=== PATIENT | female | born 1970 | race Hispanic/Latino ===

== ENCOUNTER 2019-01-15 10:07 | Emergency (ER) | payer OTHER ==
[~2019-01-15] VITALS: Ht 167.6 cm; Wt 90.3 kg
[2019-01-15] MEDS ORDERED: ABILIFY MAINTE300 MG IM (10:13)
[2019-01-15] MEDS ORDERED: IBU600 MG PO (10:55)
--- OUTSIDE RECORDS SUMMARY | 2019-01-15 11:36 | XMS ---
PreManage Notification: BRODY WINN Security Health And Physical Education Teacher Events No recent Security Events currently on file [place]ITERIA MET - [facility] [place]ARE PROVIDERS JES YOON [facility] Current PHONE: Unknown [email or web address], [employer] Mental Health Provider Current PHONE: [phone] Marcelo Swartz - Case or French Lecturer [facility] PHONE: [phone] [facility] PHONE: [phone] KAYLI POLLARD [facility] PHONE: Unknown [facility] PHONE: Unknown Guidelines Source: [employer] Guidelines Date: 11/16/2017 Additional Information: Enrolled in Assertive Community Treatment program with [email or web address].\T\nbsp; Please contact Odette Andrade @ [email or web address] regarding mental health concerns. [phone]. Prescription medications go through [place] [phone] Care History Behavioral 06/26/2017 [employer] [place] Civil Commitment ending October 24, 2017. Currently on a trial visit to independent living. Please contact [email or web address] with mental health concerns. . E.D. VISIT COUNT (12 MO.) [address] [place] [address] [facility] NOTE: Visits indicate total known visits. ED/UCC VISIT TRACKING (12 MO.) 01/15/2019 10:08 [facility] [place] TYPE: Emergency COMPLAINT: - SHOULDER PAIN 06/11/2018 13:37 [facility] [place] TYPE: Emergency DIAGNOSES: - Other chest pain - MENTAL HEALTH - Hematemesis - Schizoaffective disorder, bipolar type INPATIENT VISIT TRACKING (12 MO.) No inpatient visits to display in this time frame [id number]
== END 2019-01-15 11:08 | disposition home or self-care (01) ==
LOC: ED 10:07
DX: S46.811A Strain of other muscles, fascia and tendons at shoulder and upper arm level, right arm, initial encounter (principal); F41.0 Panic disorder [episodic paroxysmal anxiety]; X58.XXXA Exposure to other specified factors, initial encounter; F31.9 Bipolar disorder, unspecified; F20.9 Schizophrenia, unspecified; Z79.899 Other long term (current) drug therapy
CPT/HCPCS: 99283

== ENCOUNTER 2019-01-29 15:13 | Emergency (ER) | payer OTHER ==
[~2019-01-29] VITALS: Ht 167.6 cm; Wt 90.3 kg
[~2019-01-29 15:13] MED LIST: ABILIFY MAINTE300 MG IM; IBU600 MG PO
--- OUTSIDE RECORDS SUMMARY | 2019-01-29 15:16 | XMS ---
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 - Has Care Guidelines - [facility] - 2 Visits in 30 Days CARE PROVIDERS JES YOON [facility] Current PHONE: Unknown [employer] Mental Health Provider Current PHONE: [phone] Marcelo Swartz - Case or Civil Engineering Drafter Current [facility] PHONE: [phone] [facility] PHONE: [phone] KAYLI BAIRD [facility] PHONE: Unknown [facility] PHONE: Unknown Guidelines Source: [employer] Guidelines Date: 11/16/2017 Additional Information: Enrolled in Assertive Community Treatment program with [employer]T\[facility]; Please contact Odette Andrade @ [employer] regarding mental health concerns. [phone]. Prescription medications go through [place] [phone] Care History Behavioral 06/26/2017 [employer] Civil Commitment ending October 24, 2017. Currently on a trial visit to independent living. Please contact [employer] with mental health concerns. [phone]. E.D. VISIT COUNT (12 MO.) [address] [place] [address] Anthony Zaynab TOTAL 3 NOTE: Visits indicate total known visits. ED/UCC VISIT TRACKING (12 MO.) 01/29/2019 15:13 [facility] [place] TYPE: Emergency COMPLAINT: - MEDICAL CLEARANCE 01/15/2019 10:08 [facility] [place] TYPE: Emergency COMPLAINT: - SHOULDER PAIN DIAGNOSES: - Strain of musc/fasc/tend at shldr/up arm, right arm, init - Schizophrenia, unspecified - Pain in right shoulder - Other senior care (current) drug therapy - Bipolar disorder, unspecified - Exposure to other specified factors, initial encounter - Panic disorder [episodic paroxysmal anxiety] 06/11/2018 13:37 [facility] [place] TYPE: Emergency DIAGNOSES: - Other chest pain - MENTAL HEALTH - Hematemesis - Schizoaffective disorder, bipolar type INPATIENT VISIT TRACKING (12 MO.) No inpatient visits to display in this time frame [id number]
== END 2019-01-29 17:17 | disposition home or self-care (01) ==
LOC: ED 15:13
DX: F32.9 Major depressive disorder, single episode, unspecified (principal); F31.9 Bipolar disorder, unspecified; F17.200 Nicotine dependence, unspecified, uncomplicated; Z79.899 Other long term (current) drug therapy
CPT/HCPCS: 80053; 80176; 84443; 84703; 85025; 99284; G0480

== ENCOUNTER 2019-07-24 22:55 | Emergency (ER) | payer OTHER ==
[~2019-07-24] VITALS: Ht 170.2 cm; Wt 90.7 kg
--- OUTSIDE RECORDS SUMMARY | 2019-07-24 22:58 | XMS ---
PreManage Notification: BRODY WINN Security Manager Statistical Programming Events No recent Security Events currently on file CRITERIA MET - [facility] Care Guidelines CARE PROVIDERS JES YOON [facility] Current PHONE: Unknown Guidelines Source: [employer] Guidelines Date: 01/31/2019 Additional Information: Enrolled in Assertive Community Treatment program with [employer].\T\nbsp; Please contact Panfilo Fraire @ [employer] regarding mental health concerns. [phone]. Prescription medications go through [place] [phone] Care History Behavioral 06/26/2017 [employer] Civil Commitment ending October 24, 2017. Currently on a trial visit to independent living. Please contact [employer] with mental health concerns. . E.D. VISIT COUNT (12 MO.) 3 [facility] TOTAL 3 NOTE: Visits indicate total known visits. ED/UCC VISIT TRACKING (12 MO.) 07/24/2019 22:55 [facility] [place] TYPE: Emergency COMPLAINT: - PSYCHIATRIC PROBLEM 01/29/2019 15:13 [facility] [place] TYPE: Emergency COMPLAINT: - MEDICAL CLEARANCE DIAGNOSES: - Bipolar disorder, unspecified - Suicidal ideations - Major depressive disorder, single episode, unspecified - Nicotine dependence, unspecified, uncomplicated - Other cookie breaker (current) drug therapy 01/15/2019 10:08 [facility] [place] TYPE: Emergency COMPLAINT: - SHOULDER PAIN DIAGNOSES: - Strain of other muscles, fascia and tendons at shoulder and u - Schizophrenia, unspecified - Pain in right shoulder - Other cookie breaker (current) drug therapy - Bipolar disorder, unspecified - Exposure to other specified factors, initial encounter - Panic disorder [episodic paroxysmal anxiety] INPATIENT VISIT TRACKING (12 MO.) No inpatient visits to display in this time frame [id number]
== END 2019-07-25 00:18 | disposition home or self-care (01) ==
LOC: ED 22:55
DX: R06.00 Dyspnea, unspecified (principal); F31.9 Bipolar disorder, unspecified; F20.9 Schizophrenia, unspecified; F17.200 Nicotine dependence, unspecified, uncomplicated; Z79.899 Other long term (current) drug therapy
CPT/HCPCS: 71046; 99285-25

== ENCOUNTER 2019-08-24 13:17 | Emergency (ER) | payer OTHER ==
[~2019-08-24] VITALS: Ht 170.2 cm; Wt 90.7 kg
--- OUTSIDE RECORDS SUMMARY | 2019-08-24 13:20 | XMS ---
PreManage Notification: BRODY WINN Security Clinical Audiologist Events No recent Security Events currently on file CRITERIA MET - [facility] Care Guidelines CARE PROVIDERS JES YOON [facility] Current PHONE: Unknown Guidelines Source: [employer] Guidelines Date: 01/31/2019 Additional Information: Enrolled in Assertive Community Treatment program with [employer].\T\nbsp; Please contact Panfilo Fraire @ [employer] regarding mental health concerns. [phone]. Prescription medications go through [place] [phone] Care History Behavioral 06/26/2017 [place] Civil Commitment ending October 24, 2017. Currently on a trial visit to independent living. Please contact [employer] with mental health concerns. [phone]. E.D. VISIT COUNT (12 MO.) [address] [place] [address] TOTAL 4 NOTE: Visits indicate total known visits. ED/UCC VISIT TRACKING (12 MO.) 08/24/2019 13:18 [facility] [place] TYPE: Emergency COMPLAINT: - ABD CRAMPS 07/24/2019 22:55 [facility] [place] TYPE: Emergency COMPLAINT: - PSYCHIATRIC PROBLEM DIAGNOSES: - Bipolar disorder, unspecified - Dyspnea, unspecified - Shortness of breath - Nicotine dependence, unspecified, uncomplicated - Other senior care (current) drug therapy - Schizophrenia, unspecified 01/29/2019 15:13 [facility] [place] TYPE: Emergency COMPLAINT: - MEDICAL CLEARANCE DIAGNOSES: - Bipolar disorder, unspecified - Suicidal ideations - Major depressive disorder, single episode, unspecified - Nicotine dependence, unspecified, uncomplicated - Other senior care (current) drug therapy 01/15/2019 10:08 [facility] [place] TYPE: Emergency COMPLAINT: - SHOULDER PAIN DIAGNOSES: - Strain of other muscles, fascia and tendons at shoulder and u - Schizophrenia, unspecified - Pain in right shoulder - Other termite control representative (current) drug therapy - Bipolar disorder, unspecified - Exposure to other specified factors, initial encounter - Panic disorder [episodic paroxysmal anxiety] INPATIENT VISIT TRACKING (12 MO.) No inpatient visits to display in this time frame [id number]
--- NOTE | 2019-08-26 09:08 | EKG ---
[facility] [address] [facility] [place], [place] [address] Signed Sinus tachycardia Otherwise normal ECG No previous ECGs available Confirmed by CHRISTAL TERRELL MD ([id number]) on 08/26/2019 9:08:15 AM Electronically Signed By: CHRISTAL TERRELL MD 08/26/19 0908 PATIENT NAME: BRODY WINN Electrocardiogram DATE OF : 72 PHYSICIAN: CHRISTAL TERRELL MD REPORT #: [id number] REPORT IS CONFIDENTIAL AND NOT TO BE RELEASED WITHOUT AUTHORIZATION
== END 2019-08-24 14:35 | disposition home or self-care (01) ==
LOC: ED 13:17
DX: K29.70 Gastritis, unspecified, without bleeding (principal); F31.9 Bipolar disorder, unspecified; F20.9 Schizophrenia, unspecified; F17.200 Nicotine dependence, unspecified, uncomplicated; Z79.899 Other long term (current) drug therapy
CPT/HCPCS: 80053; 83690; 85025; 93005; 93010; 99284-25

== ENCOUNTER 2019-09-10 21:01 | Emergency (ER) | payer OTHER ==
[~2019-09-10] VITALS: Ht 170.2 cm; Wt 90.7 kg
--- OUTSIDE RECORDS SUMMARY | 2019-09-10 21:04 | XMS ---
PreManage Notification: BRODY WINN Security Side Puller Events No recent Security Events currently on file CRITERIA MET - [facility] - Has Care Guidelines - [facility] - 2 Visits in 30 Days CARE PROVIDERS JES YOON [facility] Current PHONE: Unknown Guidelines Source: [employer] Guidelines Date: 01/31/2019 Additional Information: Enrolled in Assertive Community Treatment program with [employer].\T\nbsp; Please contact Panfilo Fraire @ [employer] regarding mental health concerns. [phone]. Prescription medications go through [place] [phone] Care History Behavioral 06/26/2017 [place] [employer] Civil Commitment ending October 24, 2017. Currently on a trial visit to independent living. Please contact [employer] with mental health concerns. . E.D. VISIT COUNT (12 MO.) [address] [facility] TOTAL 5 NOTE: Visits indicate total known visits. ED/UCC VISIT TRACKING (12 MO.) 09/10/2019 21:02 [facility] [place] TYPE: Emergency COMPLAINT: - MED CLEARANCE 08/24/2019 13:18 [facility] [place] TYPE: Emergency COMPLAINT: - ABD CRAMPS DIAGNOSES: - Nicotine dependence, unspecified, uncomplicated - Schizophrenia, unspecified - Gastritis, unspecified, without bleeding - Unspecified abdominal pain - Bipolar disorder, unspecified - Other fci (current) drug therapy 07/24/2019 22:55 [facility] [place] TYPE: Emergency COMPLAINT: - PSYCHIATRIC PROBLEM DIAGNOSES: - Bipolar disorder, unspecified - Dyspnea, unspecified - Shortness of breath - Nicotine dependence, unspecified, uncomplicated - Other termite inspector (current) drug therapy - Schizophrenia, unspecified 01/29/2019 15:13 [facility] [place] TYPE: Emergency COMPLAINT: - MEDICAL CLEARANCE DIAGNOSES: - Bipolar disorder, unspecified - Suicidal ideations - Major depressive disorder, single episode, unspecified - Nicotine dependence, unspecified, uncomplicated - Other fci (current) drug therapy 01/15/2019 10:08 [facility] [place] TYPE: Emergency COMPLAINT: - SHOULDER PAIN DIAGNOSES: - Strain of other muscles, fascia and tendons at shoulder and u - Schizophrenia, unspecified - Pain in right shoulder - Other fci (current) drug therapy - Bipolar disorder, unspecified - Exposure to other specified factors, initial encounter - Panic disorder [episodic paroxysmal anxiety] INPATIENT VISIT TRACKING (12 MO.) No inpatient visits to display in this time frame [id number]
[2019-10-10] MEDS ORDERED: OLANZAPINE10 MG PO (09:26)
[2019-10-10] MEDS ORDERED: BENZTROPINE ME0.5 MG PO (09:26)
[2019-10-10] MEDS ORDERED: TRAZODONE HCL100 MG PO (09:26)
[2019-10-10] MEDS ORDERED: QUETIAPINE FUMA50 MG PO (09:27)
[2019-10-10] MEDS ORDERED: ARIPIPRAZOLE10 MG PO (09:27)
== END 2019-09-11 07:51 | disposition short-term general hospital (02) ==
LOC: ED 21:01
DX: F32.9 Major depressive disorder, single episode, unspecified (principal); F20.9 Schizophrenia, unspecified; Z79.899 Other long term (current) drug therapy
CPT/HCPCS: 80053; 80176; 81001; 84443; 84703; 85025; 99285; C9803; G0480; U0003

== ENCOUNTER 2020-08-29 07:35 | Emergency (ER) | payer OTHER ==
[~2020-08-29] VITALS: Ht 170.2 cm; Wt 111.1 kg
[~2020-08-29 07:35] MED LIST changes: +ARIPIPRAZOLE10 MG PO; +BENZTROPINE ME0.5 MG PO; +OLANZAPINE10 MG PO; +QUETIAPINE FUMA50 MG PO; +TRAZODONE HCL100 MG PO
[2020-08-29] MEDS ORDERED: SEROQUEL200 MG PO (07:57)
== END 2020-08-29 09:40 | disposition home or self-care (01) ==
LOC: ED 07:35
DX: G89.29 Other chronic pain (principal); R30.0 Dysuria; Z79.899 Other long term (current) drug therapy
CPT/HCPCS: 81001; 99283